=== PATIENT | male | born 1960 | race Two or more races ===

== ENCOUNTER 2020-05-25 13:00 | Inpatient (IN) | payer OTHER ==
[~2020-05-25] VITALS: Ht 170.2 cm; Wt 95.3 kg
[2020-05-25] MEDS ORDERED: methylPREDNISolone SOD SUCC 125 MG/2 ML VL IV ONE (13:45)
[2020-05-25] MEDS ORDERED: LORazepam 2MG/ML-1ML VIAL IV ONE (13:45)
[2020-05-25 13:58] LABS: Basophils # (auto) 0 10 ^3/uL (0-0.2); Basophils % (auto) 0.3 % (0.0-2.0); Eosinophils # (auto) 0 10 ^3/uL (0-0.8); Hematocrit 38.8 % (41.0-53.0); Hemoglobin 13.5 g/dL (13.5-17.5); Lymphocytes # (auto) 1.1 10 ^3/uL (0.4-5.4); Mean Corpuscular Hemoglobin 30.4 pg (28.0-32.0); Mean Corpuscular Hgb Conc. 34.8 g/dL (32.0-36.0); Mean Corpuscular Volume 87.3 fL (80.0-100.0); Monocytes # (auto) 1.3 10 ^3/uL (0-1.3); Monocytes % (auto) 8.3 % (0.0-12.0); Neutrophils # (auto) 12.7 10 ^3/uL (1.6-8.6); Neutrophils % (auto) 84.4 % (37.0-80.0); Nucleated Red Blood Cells % 0.1 %; Platelet Count (auto) 342 10^3/uL (140-450); Red Blood Cells 4.45 10^6/uL (4.5-5.90); Red Cell Distribution Width 13.2 % (11.8-14.3); White Blood Cell 15.1 10^3/uL (4.4-10.8)
[2020-05-25 14:15] LABS: INR 1.13 (0.9-1.15); Partial Thromboplastin Time 28.2 sec (23.0-31.2)
[2020-05-25 14:17] LABS: Albumin 1.9 g/dL (3.4-5.0); BUN/Creatinine Ratio 12.5; Calcium 7.2 mg/dL (8.5-10.1); Potassium 3.2 mmol/L (3.5-5.1)
[2020-05-25 14:22] LABS: Bilirubin, Total 0.4 mg/dL (0.2-1.0); Total Protein 6.1 g/dL (6.4-8.2)
[2020-05-25] MEDS ORDERED: POTASSIUM CHL 20MEQ/100ML 100 ML IV SCH (15:00)
[2020-05-25] MEDS ORDERED: diphenhdrAMINE HCL 50 MG/1 ML VL IV PRN (15:00)
[2020-05-25] MEDS ORDERED: ALBUTEROL SULF HFA 90MCG INH 200DOSE IN PRN (15:00)
[2020-05-25] MEDS ORDERED: SOD CHL 0.9%/ KCL 40MEQ 1,000 ML IV ONE (15:00)
[2020-05-25] MEDS ORDERED: REMDESIVIR PER PHARMACY 0 ML IV SCH (15:00)
[2020-05-25] MEDS ORDERED: POTASSIUM CHL 20MEQ/100ML 100 ML IV STA (15:48)
[2020-05-25] MEDS ORDERED: AZITHROMYCIN 500MG/ 250ML 250 ML IV ONE (16:00)
[2020-05-25] MEDS ORDERED: ACETAMINOPHEN 500 MG TAB PO ONE (16:00)
[2020-05-25] MEDS ORDERED: REMDESIVIR 200 MG in NS 210ml LOADING DOSE ADULT IV ONE (17:00)
[2020-05-25] MEDS ORDERED: levoFLOXacin 750MG 150 ML IV ONE (18:30)
[2020-05-25 18:35] VITALS: BP 112/88
[2020-05-25] MEDS ORDERED: LACTULOSE 20Gm/30ML SOLN PO PRN (19:00)
[2020-05-25] MEDS ORDERED: MORPHINE SULF INJ 2 MG/ML SYRINGE 1ML IV PRN ×2 (19:00→19:45)
[2020-05-25] MEDS ORDERED: FAMOTIDINE (10MG/ML) 2ML VL IV SCH (19:00)
[2020-05-25] MEDS ORDERED: PROMETHAZINE HCL 25 MG/ML 1ML IV PRN (19:00)
[2020-05-25] MEDS ORDERED: EPINEPHrine HCL 0.5 ML NEB NEB ONE (19:15)
[2020-05-25] MEDS ORDERED: NITROGLYCERIN 0.4 MG SL TAB SL PRN (19:45)
[2020-05-25] MEDS: BUDESONIDE (INHALATION) 180 MCG IH IN SCH ×2 (22:00→22:01)
[2020-05-25] MEDS: FAMOTIDINE (10MG/ML) 2ML VL IV SCH (22:00)
[2020-05-25 22:01] VITALS: BP 132/84
[2020-05-25] MEDS: ENOXAPARIN SOD 40 MG/0.4 ML SYRINGE SC SCH (22:03)
[2020-05-26 03:19] VITALS: BP 130/85
[2020-05-26 06:53] LABS: Albumin 1.9 g/dL (3.4-5.0); Anion Gap 6 (5-15); BUN/Creatinine Ratio 18.4; Blood Urea Nitrogen 16 mg/dL (7-18); Calcium 8.3 mg/dL (8.5-10.1); Carbon Dioxide 27 mmol/L (21-32); Chloride 104 mmol/L (98-107); GFR African American 116 mL/min; GFR Non-African American 95 mL/min; Glucose 141 mg/dL (74-106); Potassium 4.4 mmol/L (3.5-5.1); Sodium 137 mmol/L (136-145)
[2020-05-26 06:57] LABS: Alanine Aminotransferase 81 U/L (16-61); Alkaline Phosphatase 117 U/L (45-117); Aspartate Aminotransferase 60 U/L (15-37); Bilirubin, Total 0.3 mg/dL (0.2-1.0)
[2020-05-26 07:17] VITALS: BP 126/71
[2020-05-26] MEDS: DexAMETHasone SOD PHOS 10MG/1ML VIAL INJ IV SCH (10:13)
[2020-05-26] MEDS: FAMOTIDINE (10MG/ML) 2ML VL IV SCH ×2 (10:13→22:38)
[2020-05-26] MEDS: ASCORBIC ACID 1,000 MG TAB PO SCH (10:14)
[2020-05-26] MEDS: ENOXAPARIN SOD 40 MG/0.4 ML SYRINGE SC SCH ×2 (10:14→22:38)
[2020-05-26] MEDS: CHOLECALCIFEROL (VITD3) 2,000 UNIT CAP PO SCH (10:14)
[2020-05-26] MEDS: ZINC SULFATE 220mg CAP or TAB PO SCH (10:14)
[2020-05-26] MEDS: REMDESIVIR 100 MG in SODIUM CHL 0.9% 250 ML IV SCH (15:44)
[2020-05-26 18:15] VITALS: BP 127/66
[2020-05-26 21:40] VITALS: BP 134/77
[2020-05-26] MEDS: BUDESONIDE (INHALATION) 180 MCG IH IN SCH (22:00)
[2020-05-26] MEDS: levoFLOXacin 500MG 100 ML IV SCH (22:00)
[2020-05-27 03:05] VITALS: BP 148/80
[2020-05-27] MEDS: BUDESONIDE (INHALATION) 180 MCG IH IN SCH (06:25)
[2020-05-27 07:08] LABS: Calcium 8.5 mg/dL (8.5-10.1)
[2020-05-27 07:14] LABS: BUN/Creatinine Ratio 30.8; Bilirubin, Total 0.4 mg/dL (0.2-1.0); Total Protein 7.1 g/dL (6.4-8.2)
[2020-05-27 08:36] VITALS: BP 124/81
[2020-05-27] MEDS: ASCORBIC ACID 1,000 MG TAB PO SCH (10:00)
[2020-05-27] MEDS: CHOLECALCIFEROL (VITD3) 2,000 UNIT CAP PO SCH (10:00)
[2020-05-27] MEDS: MORPHINE SULF INJ 2 MG/ML SYRINGE 1ML IV PRN (10:22)
[2020-05-27] MEDS: FAMOTIDINE (10MG/ML) 2ML VL IV SCH ×2 (10:42→23:22)
[2020-05-27] MEDS: DexAMETHasone SOD PHOS 10MG/1ML VIAL INJ IV SCH (10:42)
[2020-05-27] MEDS: ZINC SULFATE 220mg CAP or TAB PO SCH (10:43)
[2020-05-27] MEDS: ENOXAPARIN SOD 40 MG/0.4 ML SYRINGE SC SCH ×2 (10:48→23:22)
[2020-05-27] MEDS ORDERED: FUROSEMIDE 20 MG/2 ML VIAL IV ONE (13:30)
[2020-05-27] MEDS: LORazepam 2MG/ML-1ML VIAL IV PRN ×2 (13:38→14:00)
[2020-05-27] MEDS: REMDESIVIR 100 MG in SODIUM CHL 0.9% 250 ML IV SCH (15:00)
[2020-05-27] MEDS ORDERED: HALOPERIDOL LACTATE 5 MG/ML INJ VIAL ONE (15:07)
[2020-05-27] MEDS ORDERED: diphenhdrAMINE HCL 50 MG/1 ML VL IV PRN (15:15)
[2020-05-27] MEDS ORDERED: diphenhdrAMINE HCL 50 MG/1 ML VL IM ONE (15:15)
[2020-05-27] MEDS ORDERED: HALOPERIDOL LACTATE 5 MG/ML INJ VIAL IM ONE (15:15)
[2020-05-27] MEDS ORDERED: SUCCINYLCHOLINE CHLORIDE 20 MG/ML 10ML VIAL IV ONE ×2 (15:38→15:45)
[2020-05-27] MEDS ORDERED: ETOMIDATE (2MG/ML) 20ML VIAL IV ONE ×2 (15:38→15:45)
[2020-05-27] MEDS: MIDAZOLAM DRIP 50 mg/50mL 50 ML IV SCH (15:45)
[2020-05-27] MEDS ORDERED: MIDAZOLAM DRIP 50 mg/50mL 50 ML IV ONE (15:45)
[2020-05-27] MEDS: PROPOFOL 100 ML IV SCH (15:45)
[2020-05-27] MEDS ORDERED: ALBUTEROL SULF 2.5 MG/0.5ML(0.5%) NEB SOLN NEB SCH (16:00)
[2020-05-27] MEDS ORDERED: MORPHINE SULFATE 4 MG/ML SYR/VIAL IV PRN (16:00)
[2020-05-27] MEDS ORDERED: NOREPINEPHRINE 8 MG/250ML KIT 250 ML IV ONE (17:23)
[2020-05-27] MEDS: NOREPINEPHRINE 8 MG/250ML KIT 250 ML IV SCH (17:30)
[2020-05-27] MEDS ORDERED: DOPamine 1600MCG/ML D5W 250 ML IV ONE (17:35)
[2020-05-27] MEDS ORDERED: IPRATROPIUM BROM 0.5 MG/2.5ML INH SOL NEB SCH (18:00)
[2020-05-27] MEDS: DOPamine 1600MCG/ML D5W 250 ML IV SCH (19:14)
[2020-05-27 19:30] VITALS: BP 113/65
[2020-05-27] MEDS: ALBUTEROL SULF 2.5 MG/0.5ML(0.5%) NEB SOLN NEB SCH (22:00)
[2020-05-27] MEDS: IPRATROPIUM BROM 0.5 MG/2.5ML INH SOL NEB SCH (22:00)
[2020-05-27] MEDS: levoFLOXacin 500MG 100 ML IV SCH (23:22)
[2020-05-28 00:36] VITALS: BP 99/61
[2020-05-28] MEDS: MIDAZOLAM DRIP 50 mg/50mL 50 ML IV SCH ×3 (01:58→21:50)
[2020-05-28 05:40] LABS: Basophils # (auto) 0 10 ^3/uL (0-0.2); Basophils % (auto) 0.1 % (0.0-2.0); Eosinophils # (auto) 0 10 ^3/uL (0-0.8); Eosinophils % (auto) 0.1 % (0.0-7.0); Hematocrit 40.5 % (41.0-53.0); Hemoglobin 13.3 g/dL (13.5-17.5); Lymphocytes # (auto) 1.1 10 ^3/uL (0.4-5.4); Lymphocytes % (auto) 10.8 % (10.0-50.0); Mean Corpuscular Hemoglobin 29.3 pg (28.0-32.0); Mean Corpuscular Hgb Conc. 32.9 g/dL (32.0-36.0); Mean Corpuscular Volume 89.3 fL (80.0-100.0); Monocytes # (auto) 0.8 10 ^3/uL (0-1.3); Monocytes % (auto) 7.6 % (0.0-12.0); Neutrophils # (auto) 8.3 10 ^3/uL (1.6-8.6); Neutrophils % (auto) 81.4 % (37.0-80.0); Nucleated Red Blood Cells % 0.1 %; Platelet Count (auto) 469 10^3/uL (140-450); Red Blood Cells 4.53 10^6/uL (4.5-5.90); Red Cell Distribution Width 13.8 % (11.8-14.3); White Blood Cell 10.2 10^3/uL (4.4-10.8)
[2020-05-28 05:54] LABS: Potassium 4.2 mmol/L (3.5-5.1)
[2020-05-28 06:02] LABS: Albumin 2.1 g/dL (3.4-5.0); BUN/Creatinine Ratio 31.7; Bilirubin, Total 0.6 mg/dL (0.2-1.0); Calcium 8.7 mg/dL (8.5-10.1); Total Protein 7.2 g/dL (6.4-8.2)
[2020-05-28 07:06] VITALS: BP 99/62
[2020-05-28] MEDS: ALBUTEROL SULF 2.5 MG/0.5ML(0.5%) NEB SOLN NEB SCH ×3 (07:06→22:23)
[2020-05-28] MEDS: IPRATROPIUM BROM 0.5 MG/2.5ML INH SOL NEB SCH ×3 (07:06→22:23)
[2020-05-28] MEDS ORDERED: PANTOPRAZOLE 40 MG/10 ML VIAL INJ IV SCH (10:00)
[2020-05-28] MEDS: ZINC SULFATE 220mg CAP or TAB PO SCH (10:00)
[2020-05-28] MEDS: CHOLECALCIFEROL (VITD3) 2,000 UNIT CAP PO SCH (10:00)
[2020-05-28] MEDS: ASCORBIC ACID 1,000 MG TAB PO SCH (10:00)
[2020-05-28] MEDS ORDERED: FUROSEMIDE 20 MG/2 ML VIAL IV SCH (10:00)
[2020-05-28 10:30] VITALS: BP 109/64
[2020-05-28] MEDS: DOPamine 1600MCG/ML D5W 250 ML IV SCH (11:23)
[2020-05-28] MEDS: DexAMETHasone SOD PHOS 10MG/1ML VIAL INJ IV SCH (11:32)
[2020-05-28] MEDS: FAMOTIDINE (10MG/ML) 2ML VL IV SCH ×2 (11:34→21:51)
[2020-05-28] MEDS: FUROSEMIDE 20 MG/2 ML VIAL IV SCH (11:34)
[2020-05-28] MEDS: ENOXAPARIN SOD 40 MG/0.4 ML SYRINGE SC SCH ×2 (11:35→21:51)
[2020-05-28] MEDS ORDERED: THIAMINE 100mg/ml INJ (200mg/2ml VIAL) IV ONE (13:00)
[2020-05-28] MEDS ORDERED: FOLIC ACID 1 MG in D5W 5% 50 ML INJ ONE (13:00)
[2020-05-28] MEDS ORDERED: Jevity 1.2 Cal/Fiber 1 Liter GT SCH (13:00)
[2020-05-28 13:57] VITALS: BP 109/64
[2020-05-28] MEDS: REMDESIVIR 100 MG in SODIUM CHL 0.9% 250 ML IV SCH (15:35)
[2020-05-28] MEDS: PROPOFOL 100 ML IV SCH (15:37)
[2020-05-28] MEDS: NOREPINEPHRINE 8 MG/250ML KIT 250 ML IV SCH (17:30)
[2020-05-28 19:34] VITALS: BP 115/68
[2020-05-28] MEDS: levoFLOXacin 500MG 100 ML IV SCH (21:51)
[2020-05-28 23:20] VITALS: BP 111/59
[2020-05-29] MEDS: DOPamine 1600MCG/ML D5W 250 ML IV SCH ×2 (01:12→10:04)
[2020-05-29 03:22] VITALS: BP 102/62
[2020-05-29] MEDS: LACTULOSE 20Gm/30ML SOLN GT SCH ×3 (04:35→22:00)
[2020-05-29 05:33] LABS: Eosinophils # (auto) 0 10 ^3/uL (0-0.8); Eosinophils % (auto) 0.1 % (0.0-7.0); Monocytes # (auto) 0.7 10 ^3/uL (0-1.3)
[2020-05-29 05:36] LABS: Basophils # (auto) 0 10 ^3/uL (0-0.2); Basophils % (auto) 0.2 % (0.0-2.0); Hematocrit 41.9 % (41.0-53.0); Lymphocytes % (auto) 9.8 % (10.0-50.0); Mean Corpuscular Hemoglobin 29.9 pg (28.0-32.0); Mean Corpuscular Hgb Conc. 33.3 g/dL (32.0-36.0); Mean Corpuscular Volume 89.7 fL (80.0-100.0); Monocytes % (auto) 6.1 % (0.0-12.0); Neutrophils % (auto) 83.8 % (37.0-80.0); Platelet Count (auto) 513 10^3/uL (140-450); Red Blood Cells 4.67 10^6/uL (4.5-5.90); Red Cell Distribution Width 13.9 % (11.8-14.3); White Blood Cell 10.7 10^3/uL (4.4-10.8)
[2020-05-29 05:51] LABS: Calcium 8.6 mg/dL (8.5-10.1); Potassium 4.4 mmol/L (3.5-5.1)
[2020-05-29 06:01] LABS: Albumin 2.2 g/dL (3.4-5.0); BUN/Creatinine Ratio 34.6; Bilirubin, Total 0.4 mg/dL (0.2-1.0); Total Protein 7.4 g/dL (6.4-8.2)
[2020-05-29 07:02] VITALS: BP 105/59
[2020-05-29] MEDS: ALBUTEROL SULF 2.5 MG/0.5ML(0.5%) NEB SOLN NEB SCH ×2 (07:02→20:57)
[2020-05-29] MEDS: IPRATROPIUM BROM 0.5 MG/2.5ML INH SOL NEB SCH ×2 (07:02→20:57)
[2020-05-29] MEDS: FOLIC ACID 1 MG in D5W 5% 50 ML INJ SCH (09:14)
[2020-05-29] MEDS: DexAMETHasone SOD PHOS 10MG/1ML VIAL INJ IV SCH (09:15)
[2020-05-29] MEDS: THIAMINE 100mg/ml INJ (200mg/2ml VIAL) IV SCH (09:15)
[2020-05-29] MEDS: FUROSEMIDE 20 MG/2 ML VIAL IV SCH (09:15)
[2020-05-29] MEDS: ZINC SULFATE 220mg CAP or TAB PO SCH (09:16)
[2020-05-29] MEDS: ASCORBIC ACID 1,000 MG TAB PO SCH (09:16)
[2020-05-29] MEDS: FAMOTIDINE (10MG/ML) 2ML VL IV SCH ×2 (09:16→21:38)
[2020-05-29] MEDS: ENOXAPARIN SOD 40 MG/0.4 ML SYRINGE SC SCH ×2 (09:16→21:38)
[2020-05-29] MEDS: CHOLECALCIFEROL (VITD3) 2,000 UNIT CAP PO SCH (09:16)
[2020-05-29] MEDS: MIDAZOLAM DRIP 50 mg/50mL 50 ML IV SCH ×3 (10:03→18:30)
[2020-05-29] MEDS: PROPOFOL 100 ML IV SCH (10:04)
[2020-05-29 10:25] VITALS: BP 110/68
[2020-05-29] MEDS: fentaNYL Drip 2500mCg/250mlNS 250 ML IV SCH (12:13)
[2020-05-29] MEDS: REMDESIVIR 100 MG in SODIUM CHL 0.9% 250 ML IV SCH (15:45)
[2020-05-29] MEDS: Ensure Enlive Chocolate 8oz Bottle GT SCH ×2 (18:00→22:00)
[2020-05-29 18:11] VITALS: BP 122/64
[2020-05-29] MEDS: levoFLOXacin 500MG 100 ML IV SCH (21:38)
[2020-05-29 23:50] VITALS: BP 113/71
[2020-05-30 05:14] LABS: Basophils # (auto) 0.1 10 ^3/uL (0-0.2); Basophils % (auto) 0.4 % (0.0-2.0); Eosinophils # (auto) 0 10 ^3/uL (0-0.8); Hemoglobin 14.1 g/dL (13.5-17.5); Lymphocytes # (auto) 1.2 10 ^3/uL (0.4-5.4); Mean Corpuscular Hemoglobin 30.8 pg (28.0-32.0); Mean Corpuscular Hgb Conc. 34.4 g/dL (32.0-36.0); Mean Corpuscular Volume 89.5 fL (80.0-100.0); Monocytes % (auto) 6.7 % (0.0-12.0); Neutrophils % (auto) 84.9 % (37.0-80.0); Platelet Count (auto) 565 10^3/uL (140-450); Red Blood Cells 4.59 10^6/uL (4.5-5.90); Red Cell Distribution Width 13.5 % (11.8-14.3); White Blood Cell 15.3 10^3/uL (4.4-10.8)
[2020-05-30 05:43] LABS: Potassium 4.8 mmol/L (3.5-5.1)
[2020-05-30 05:53] LABS: Albumin 2.3 g/dL (3.4-5.0); BUN/Creatinine Ratio 40.2; Bilirubin, Total 0.4 mg/dL (0.2-1.0); Calcium 8.7 mg/dL (8.5-10.1); Total Protein 7.6 g/dL (6.4-8.2)
[2020-05-30] MEDS: IPRATROPIUM BROM 0.5 MG/2.5ML INH SOL NEB SCH ×3 (06:00→19:51)
[2020-05-30] MEDS: ALBUTEROL SULF 2.5 MG/0.5ML(0.5%) NEB SOLN NEB SCH ×3 (06:00→19:51)
[2020-05-30 06:11] VITALS: BP 121/64
[2020-05-30] MEDS: Ensure Enlive Chocolate 8oz Bottle GT SCH ×4 (07:09→22:00)
[2020-05-30] MEDS: DOPamine 1600MCG/ML D5W 250 ML IV SCH ×2 (07:16→22:38)
[2020-05-30 09:46] VITALS: BP 121/66
[2020-05-30] MEDS: LACTULOSE 20Gm/30ML SOLN GT SCH ×2 (10:00→22:00)
[2020-05-30] MEDS: THIAMINE 100mg/ml INJ (200mg/2ml VIAL) IV SCH (11:38)
[2020-05-30] MEDS: ASCORBIC ACID 1,000 MG TAB PO SCH (11:39)
[2020-05-30] MEDS: CHOLECALCIFEROL (VITD3) 2,000 UNIT CAP PO SCH (11:39)
[2020-05-30] MEDS: FAMOTIDINE (10MG/ML) 2ML VL IV SCH ×2 (11:39→23:26)
[2020-05-30] MEDS: ZINC SULFATE 220mg CAP or TAB PO SCH (11:39)
[2020-05-30] MEDS: ENOXAPARIN SOD 40 MG/0.4 ML SYRINGE SC SCH ×2 (11:39→23:26)
[2020-05-30] MEDS: DexAMETHasone SOD PHOS 10MG/1ML VIAL INJ IV SCH (11:39)
[2020-05-30] MEDS: FOLIC ACID 1 MG in D5W 5% 50 ML INJ SCH (11:56)
[2020-05-30] MEDS: FUROSEMIDE 20 MG/2 ML VIAL IV SCH (11:56)
[2020-05-30] MEDS: levoFLOXacin 750MG 150 ML IV SCH (11:56)
[2020-05-30] MEDS: MIDAZOLAM DRIP 50 mg/50mL 50 ML IV SCH ×2 (13:59→14:38)
[2020-05-30 14:00] VITALS: BP 116/67
[2020-05-30] MEDS ORDERED: PROPOFOL 100 ML IV ONE (14:26)
[2020-05-30] MEDS: PROPOFOL 100 ML IV SCH (14:30)
[2020-05-30 18:10] VITALS: BP 122/62
[2020-05-30] MEDS: fentaNYL Drip 2500mCg/250mlNS 250 ML IV SCH ×2 (19:35→22:20)
[2020-05-30 22:10] VITALS: BP 121/62
[2020-05-31 02:20] VITALS: BP 132/66
[2020-05-31] MEDS: Ensure Enlive Chocolate 8oz Bottle GT SCH (06:00)
[2020-05-31 06:15] VITALS: BP 116/65
[2020-05-31 06:19] LABS: Basophils # (auto) 0 10 ^3/uL (0-0.2); Basophils % (auto) 0.1 % (0.0-2.0); Eosinophils # (auto) 0 10 ^3/uL (0-0.8); Eosinophils % (auto) 0.2 % (0.0-7.0); Hemoglobin 14.2 g/dL (13.5-17.5); Red Cell Distribution Width 13.5 % (11.8-14.3)
[2020-05-31] MEDS: ALBUTEROL SULF 2.5 MG/0.5ML(0.5%) NEB SOLN NEB SCH ×3 (06:20→19:17)
[2020-05-31] MEDS: IPRATROPIUM BROM 0.5 MG/2.5ML INH SOL NEB SCH ×3 (06:20→19:16)
[2020-05-31 06:28] LABS: Hematocrit 40.9 % (41.0-53.0); Lymphocytes # (auto) 2.1 10 ^3/uL (0.4-5.4); Lymphocytes % (auto) 14.4 % (10.0-50.0); Mean Corpuscular Hemoglobin 30.6 pg (28.0-32.0); Mean Corpuscular Hgb Conc. 34.7 g/dL (32.0-36.0); Mean Corpuscular Volume 88.3 fL (80.0-100.0); Monocytes # (auto) 1.2 10 ^3/uL (0-1.3); Monocytes % (auto) 8.4 % (0.0-12.0); Neutrophils # (auto) 11.3 10 ^3/uL (1.6-8.6); Neutrophils % (auto) 76.9 % (37.0-80.0); Nucleated Red Blood Cells % 0.2 %; Platelet Count (auto) 597 10^3/uL (140-450); Red Blood Cells 4.64 10^6/uL (4.5-5.90); White Blood Cell 14.7 10^3/uL (4.4-10.8)
[2020-05-31 06:35] LABS: Potassium 3.9 mmol/L (3.5-5.1)
[2020-05-31 06:47] LABS: Albumin 2.3 g/dL (3.4-5.0); BUN/Creatinine Ratio 34.3; Bilirubin, Total 0.8 mg/dL (0.2-1.0); Total Protein 7.2 g/dL (6.4-8.2)
[2020-05-31] MEDS: MIDAZOLAM DRIP 50 mg/50mL 50 ML IV SCH (09:58)
[2020-05-31] MEDS: LACTULOSE 20Gm/30ML SOLN GT SCH ×2 (10:20→22:05)
[2020-05-31] MEDS: THIAMINE 100mg/ml INJ (200mg/2ml VIAL) IV SCH (10:21)
[2020-05-31] MEDS: ENOXAPARIN SOD 40 MG/0.4 ML SYRINGE SC SCH ×2 (10:27→22:05)
[2020-05-31] MEDS: DexAMETHasone SOD PHOS 10MG/1ML VIAL INJ IV SCH (10:32)
[2020-05-31] MEDS: FAMOTIDINE (10MG/ML) 2ML VL IV SCH ×2 (10:48→22:05)
[2020-05-31] MEDS: levoFLOXacin 750MG 150 ML IV SCH (10:48)
[2020-05-31] MEDS: CHOLECALCIFEROL (VITD3) 2,000 UNIT CAP PO SCH (10:48)
[2020-05-31] MEDS: ASCORBIC ACID 1,000 MG TAB PO SCH (10:48)
[2020-05-31] MEDS: ZINC SULFATE 220mg CAP or TAB PO SCH (10:48)
[2020-05-31] MEDS: FUROSEMIDE 20 MG/2 ML VIAL IV SCH (10:48)
[2020-05-31] MEDS: FOLIC ACID 1 MG in D5W 5% 50 ML INJ SCH (10:49)
[2020-05-31 10:52] VITALS: BP 121/68
[2020-05-31] MEDS: DOPamine 1600MCG/ML D5W 250 ML IV SCH (13:37)
[2020-05-31 13:45] VITALS: BP 113/65
[2020-05-31] MEDS: PROPOFOL 100 ML IV SCH (15:04)
[2020-05-31 18:45] VITALS: BP 130/67
[2020-05-31 22:40] VITALS: BP 129/63
[2020-06-01] VITALS (95 sets, daily range): BP systolic 94–177; BP diastolic 55–83
[2020-06-01] MEDS: MIDAZOLAM DRIP 50 mg/50mL 50 ML IV SCH ×3 (03:45→12:44)
[2020-06-01] MEDS: DOPamine 1600MCG/ML D5W 250 ML IV SCH ×2 (04:35→19:40)
[2020-06-01] MEDS: IPRATROPIUM BROM 0.5 MG/2.5ML INH SOL NEB SCH ×3 (06:50→18:40)
[2020-06-01] MEDS: ALBUTEROL SULF 2.5 MG/0.5ML(0.5%) NEB SOLN NEB SCH ×3 (06:50→18:40)
[2020-06-01 07:03] LABS: Hematocrit 41.4 % (41.0-53.0); Hemoglobin 14.1 g/dL (13.5-17.5); Mean Corpuscular Hemoglobin 30.4 pg (28.0-32.0); Mean Corpuscular Hgb Conc. 34.1 g/dL (32.0-36.0)
[2020-06-01 07:07] LABS: Mean Corpuscular Volume 89.1 fL (80.0-100.0); Platelet Count (auto) 496 10^3/uL (140-450); Red Blood Cells 4.65 10^6/uL (4.5-5.90); Red Cell Distribution Width 13.6 % (11.8-14.3)
[2020-06-01 07:11] LABS: Band Neutrophils % (manual) 0; Basophils % (manual) 0 (0.0-2.0); Blast Cells 0; Eosinophils % (manual) 0 (0-7); Metamyelocytes % 0; Promyelocytes % 0; Reactive Lymphocytes 0
[2020-06-01 07:42] LABS: Lymphocytes % (manual) 13 (10.0-50.0); Monocytes % (manual) 7 (0-12); Myelocytes % 3
[2020-06-01 07:49] LABS: Potassium 4.4 mmol/L (3.5-5.1)
[2020-06-01 07:53] LABS: Albumin 2.4 g/dL (3.4-5.0); BUN/Creatinine Ratio 43.2; Calcium 8.3 mg/dL (8.5-10.1)
[2020-06-01 07:55] LABS: Bilirubin, Total 0.8 mg/dL (0.2-1.0); Total Protein 7.3 g/dL (6.4-8.2)
[2020-06-01] MEDS: fentaNYL Drip 2500mCg/250mlNS 250 ML IV SCH ×2 (09:39→23:30)
[2020-06-01] MEDS: CHOLECALCIFEROL (VITD3) 2,000 UNIT CAP PO SCH (10:00)
[2020-06-01] MEDS: ASCORBIC ACID 1,000 MG TAB PO SCH (10:00)
[2020-06-01] MEDS: ENOXAPARIN SOD 40 MG/0.4 ML SYRINGE SC SCH ×2 (10:00→21:54)
[2020-06-01] MEDS: DexAMETHasone SOD PHOS 10MG/1ML VIAL INJ IV SCH (10:00)
[2020-06-01] MEDS: FAMOTIDINE (10MG/ML) 2ML VL IV SCH ×2 (10:00→21:47)
[2020-06-01] MEDS: FUROSEMIDE 20 MG/2 ML VIAL IV SCH (10:00)
[2020-06-01] MEDS: LACTULOSE 20Gm/30ML SOLN GT SCH ×2 (10:00→21:47)
[2020-06-01] MEDS: THIAMINE 100mg/ml INJ (200mg/2ml VIAL) IV SCH (10:00)
[2020-06-01] MEDS: ZINC SULFATE 220mg CAP or TAB PO SCH (10:00)
[2020-06-01] MEDS: levoFLOXacin 750MG 150 ML IV SCH (10:30)
[2020-06-01] MEDS: FOLIC ACID 1 MG in D5W 5% 50 ML INJ SCH (12:42)
[2020-06-01] MEDS: PROPOFOL 100 ML IV SCH (14:45)
[2020-06-02] VITALS (91 sets, daily range): BP systolic 107–209; BP diastolic 56–98
[2020-06-02] MEDS: MIDAZOLAM DRIP 50 mg/50mL 50 ML IV SCH ×3 (02:56→19:50)
[2020-06-02 05:55] LABS: Basophils # (auto) 0 10 ^3/uL (0-0.2); Basophils % (auto) 0.2 % (0.0-2.0); Eosinophils # (auto) 0 10 ^3/uL (0-0.8); Eosinophils % (auto) 0.1 % (0.0-7.0); Hemoglobin 13.8 g/dL (13.5-17.5); Lymphocytes # (auto) 1.6 10 ^3/uL (0.4-5.4); Neutrophils % (auto) 83.1 % (37.0-80.0)
[2020-06-02 05:56] LABS: Hematocrit 41.6 % (41.0-53.0); Mean Corpuscular Hgb Conc. 33.2 g/dL (32.0-36.0); Mean Corpuscular Volume 90.4 fL (80.0-100.0); Monocytes % (auto) 6.6 % (0.0-12.0); Nucleated Red Blood Cells % 0.1 %; Platelet Count (auto) 498 10^3/uL (140-450); Red Blood Cells 4.59 10^6/uL (4.5-5.90); Red Cell Distribution Width 13.8 % (11.8-14.3); White Blood Cell 15.7 10^3/uL (4.4-10.8)
[2020-06-02 06:11] LABS: Potassium 4.8 mmol/L (3.5-5.1)
[2020-06-02 06:19] LABS: Albumin 2.2 g/dL (3.4-5.0); BUN/Creatinine Ratio 56.5; Calcium 8.8 mg/dL (8.5-10.1); Total Protein 7.4 g/dL (6.4-8.2)
[2020-06-02] MEDS: IPRATROPIUM BROM 0.5 MG/2.5ML INH SOL NEB SCH ×3 (07:34→18:10)
[2020-06-02] MEDS: ALBUTEROL SULF 2.5 MG/0.5ML(0.5%) NEB SOLN NEB SCH ×3 (07:34→18:10)
[2020-06-02] MEDS: LACTULOSE 20Gm/30ML SOLN GT SCH ×2 (08:50→22:00)
[2020-06-02] MEDS: FUROSEMIDE 20 MG/2 ML VIAL IV SCH (08:51)
[2020-06-02] MEDS: ZINC SULFATE 220mg CAP or TAB PO SCH (08:51)
[2020-06-02] MEDS: FAMOTIDINE (10MG/ML) 2ML VL IV SCH ×2 (08:51→23:16)
[2020-06-02] MEDS: levoFLOXacin 750MG 150 ML IV SCH (08:51)
[2020-06-02] MEDS: THIAMINE 100mg/ml INJ (200mg/2ml VIAL) IV SCH (08:51)
[2020-06-02] MEDS: DexAMETHasone SOD PHOS 10MG/1ML VIAL INJ IV SCH (08:51)
[2020-06-02] MEDS: ASCORBIC ACID 1,000 MG TAB PO SCH (08:52)
[2020-06-02] MEDS: ENOXAPARIN SOD 40 MG/0.4 ML SYRINGE SC SCH ×2 (08:52→23:16)
[2020-06-02] MEDS: DOPamine 1600MCG/ML D5W 250 ML IV SCH (08:52)
[2020-06-02] MEDS: CHOLECALCIFEROL (VITD3) 2,000 UNIT CAP PO SCH (08:52)
[2020-06-02] MEDS: PROPOFOL 100 ML IV SCH (09:10)
[2020-06-02] MEDS: FOLIC ACID 1 MG in D5W 5% 50 ML INJ SCH (10:54)
[2020-06-02] MEDS: fentaNYL Drip 2500mCg/250mlNS 250 ML IV SCH (13:30)
[2020-06-03] VITALS (70 sets, daily range): BP systolic 105–219; BP diastolic 49–109
[2020-06-03] MEDS: MIDAZOLAM DRIP 50 mg/50mL 50 ML IV SCH ×3 (00:09→19:33)
[2020-06-03] MEDS: DOPamine 1600MCG/ML D5W 250 ML IV SCH ×2 (01:50→19:34)
[2020-06-03] MEDS: fentaNYL Drip 2500mCg/250mlNS 250 ML IV SCH (02:19)
[2020-06-03 03:14] LABS: Basophils # (auto) 0.2 10 ^3/uL (0-0.2); Eosinophils # (auto) 0 10 ^3/uL (0-0.8); Monocytes # (auto) 1.1 10 ^3/uL (0-1.3)
[2020-06-03 03:15] LABS: Hematocrit 41.3 % (41.0-53.0); Hemoglobin 13.9 g/dL (13.5-17.5); Lymphocytes # (auto) 2.6 10 ^3/uL (0.4-5.4); Mean Corpuscular Hemoglobin 29.9 pg (28.0-32.0); Mean Corpuscular Hgb Conc. 33.6 g/dL (32.0-36.0); Monocytes % (auto) 6.4 % (0.0-12.0); Neutrophils # (auto) 13.4 10 ^3/uL (1.6-8.6); Neutrophils % (auto) 77.6 % (37.0-80.0); Platelet Count (auto) 479 10^3/uL (140-450); Red Blood Cells 4.64 10^6/uL (4.5-5.90); Red Cell Distribution Width 13.3 % (11.8-14.3); White Blood Cell 17.3 10^3/uL (4.4-10.8)
[2020-06-03 03:33] LABS: Albumin 2.5 g/dL (3.4-5.0); BUN/Creatinine Ratio 58.2; Calcium 8.5 mg/dL (8.5-10.1); Potassium 3.8 mmol/L (3.5-5.1)
[2020-06-03 03:36] LABS: Bilirubin, Total 0.9 mg/dL (0.2-1.0); Total Protein 7.3 g/dL (6.4-8.2)
[2020-06-03] MEDS: IPRATROPIUM BROM 0.5 MG/2.5ML INH SOL NEB SCH ×2 (06:00→18:45)
[2020-06-03] MEDS: ALBUTEROL SULF 2.5 MG/0.5ML(0.5%) NEB SOLN NEB SCH ×2 (06:00→18:45)
[2020-06-03] MEDS: LACTULOSE 20Gm/30ML SOLN GT SCH ×2 (09:52→21:47)
[2020-06-03] MEDS: levoFLOXacin 750MG 150 ML IV SCH (09:53)
[2020-06-03] MEDS: FOLIC ACID 1 MG in D5W 5% 50 ML INJ SCH (09:53)
[2020-06-03] MEDS: THIAMINE 100mg/ml INJ (200mg/2ml VIAL) IV SCH (09:53)
[2020-06-03] MEDS: DexAMETHasone SOD PHOS 10MG/1ML VIAL INJ IV SCH (09:53)
[2020-06-03] MEDS: FAMOTIDINE (10MG/ML) 2ML VL IV SCH ×2 (09:54→21:47)
[2020-06-03] MEDS: ZINC SULFATE 220mg CAP or TAB PO SCH (09:54)
[2020-06-03] MEDS: CHOLECALCIFEROL (VITD3) 2,000 UNIT CAP PO SCH (09:55)
[2020-06-03] MEDS: ASCORBIC ACID 1,000 MG TAB PO SCH (09:55)
[2020-06-03] MEDS: ENOXAPARIN SOD 40 MG/0.4 ML SYRINGE SC SCH ×2 (09:56→21:48)
[2020-06-03] MEDS ORDERED: ERTAPENEM SOD INJ 1 GM in SODIUM CHL 0.9% 50 ML IV SCH (14:00)
[2020-06-03] MEDS: FLUCONAZOLE 200MG/100ML 100 ML IV SCH ×2 (15:16→16:10)
[2020-06-03] MEDS ORDERED: hydrALAZINE HCL 20 MG/ML VL IV ONE (16:45)
[2020-06-03] MEDS: HALOPERIDOL LACTATE 5 MG/ML INJ VIAL IM PRN (17:25)
[2020-06-03] MEDS: hydrALAZINE HCL 20 MG/ML VL IV PRN ×2 (18:17→20:45)
[2020-06-03] MEDS: PROPOFOL 100 ML IV SCH (19:34)
[2020-06-03] MEDS: MORPHINE SULF INJ 2 MG/ML SYRINGE 1ML IV PRN (21:00)
[2020-06-04] VITALS (58 sets, daily range): BP systolic 130–179; BP diastolic 53–96
[2020-06-04] MEDS: hydrALAZINE HCL 20 MG/ML VL IV PRN ×2 (00:35→06:30)
[2020-06-04] MEDS: LORazepam 2MG/ML-1ML VIAL IV PRN ×2 (00:35→22:56)
[2020-06-04] MEDS: MORPHINE SULF INJ 2 MG/ML SYRINGE 1ML IV PRN ×2 (04:30→20:15)
[2020-06-04 05:35] LABS: Basophils # (auto) 0.1 10 ^3/uL (0-0.2); Basophils % (auto) 0.3 % (0.0-2.0); Eosinophils # (auto) 0 10 ^3/uL (0-0.8); Red Blood Cells 4.69 10^6/uL (4.5-5.90)
[2020-06-04 05:40] LABS: Hematocrit 41.8 % (41.0-53.0); Lymphocytes # (auto) 1.4 10 ^3/uL (0.4-5.4); Lymphocytes % (auto) 6.8 % (10.0-50.0); Mean Corpuscular Hemoglobin 29.9 pg (28.0-32.0); Mean Corpuscular Hgb Conc. 33.6 g/dL (32.0-36.0); Monocytes # (auto) 1.4 10 ^3/uL (0-1.3); Monocytes % (auto) 6.7 % (0.0-12.0); Neutrophils # (auto) 17.5 10 ^3/uL (1.6-8.6); Neutrophils % (auto) 86.2 % (37.0-80.0); Platelet Count (auto) 497 10^3/uL (140-450); Red Cell Distribution Width 13.3 % (11.8-14.3); White Blood Cell 20.3 10^3/uL (4.4-10.8)
[2020-06-04 05:50] LABS: Albumin 2.5 g/dL (3.4-5.0); Calcium 8.8 mg/dL (8.5-10.1); Potassium 3.7 mmol/L (3.5-5.1)
[2020-06-04 05:55] LABS: Bilirubin, Total 1.1 mg/dL (0.2-1.0); Total Protein 7.4 g/dL (6.4-8.2)
[2020-06-04] MEDS ORDERED: VANCOMYCIN PER PHARMACY 0 MG IV SCH (09:45)
[2020-06-04] MEDS ORDERED: chlordiazePOXIDE HCL 25 MG CAP GT ONE (09:45)
[2020-06-04] MEDS ORDERED: FLUCONAZOLE 200MG/100ML 100 ML IV SCH (10:00)
[2020-06-04] MEDS: LACTULOSE 20Gm/30ML SOLN GT SCH ×2 (10:00→22:08)
[2020-06-04] MEDS: FOLIC ACID 1 MG in D5W 5% 50 ML INJ SCH (10:10)
[2020-06-04] MEDS: THIAMINE 100mg/ml INJ (200mg/2ml VIAL) IV SCH (10:10)
[2020-06-04] MEDS: ZINC SULFATE 220mg CAP or TAB PO SCH (10:11)
[2020-06-04] MEDS: ASCORBIC ACID 1,000 MG TAB PO SCH (10:11)
[2020-06-04] MEDS: CHOLECALCIFEROL (VITD3) 2,000 UNIT CAP PO SCH (10:11)
[2020-06-04] MEDS: DexAMETHasone SOD PHOS 10MG/1ML VIAL INJ IV SCH (10:11)
[2020-06-04] MEDS: FAMOTIDINE (10MG/ML) 2ML VL IV SCH ×2 (10:11→22:08)
[2020-06-04] MEDS: ENOXAPARIN SOD 40 MG/0.4 ML SYRINGE SC SCH ×2 (10:12→22:09)
[2020-06-04] MEDS: VANCOMYCIN 1GM/250ML 250 ML IV SCH ×2 (10:56→18:14)
[2020-06-04] MEDS: chlordiazePOXIDE HCL 25 MG CAP PO SCH ×3 (11:52→23:58)
[2020-06-04] MEDS: CEFEPIME 1 GM in SODIUM CHL 0.9% 50 ML IV SCH ×2 (13:05→22:07)
[2020-06-04] MEDS: HALOPERIDOL LACTATE 5 MG/ML INJ VIAL IM PRN (17:15)
[2020-06-04] MEDS: Jevity 1.2 Cal/Fiber 1 Liter GT SCH (17:34)
[2020-06-05] VITALS (24 sets, daily range): BP systolic 123–153; BP diastolic 69–87
[2020-06-05] MEDS ORDERED: HALOPERIDOL LACTATE 5 MG/ML INJ VIAL IM PRN
[2020-06-05] MEDS: VANCOMYCIN 1GM/250ML 250 ML IV SCH ×3 (02:04→19:25)
[2020-06-05] MEDS: MORPHINE SULF INJ 2 MG/ML SYRINGE 1ML IV PRN (02:37)
[2020-06-05 05:26] LABS: Basophils # (auto) 0 10 ^3/uL (0-0.2); Eosinophils # (auto) 0 10 ^3/uL (0-0.8); Eosinophils % (auto) 0.1 % (0.0-7.0); Red Cell Distribution Width 13.5 % (11.8-14.3)
[2020-06-05 05:28] LABS: Basophils % (auto) 0.3 % (0.0-2.0); Hematocrit 40.9 % (41.0-53.0); Hemoglobin 14.3 g/dL (13.5-17.5); Lymphocytes # (auto) 2.2 10 ^3/uL (0.4-5.4); Lymphocytes % (auto) 12.8 % (10.0-50.0); Mean Corpuscular Hemoglobin 30.8 pg (28.0-32.0); Mean Corpuscular Hgb Conc. 34.8 g/dL (32.0-36.0); Mean Corpuscular Volume 88.5 fL (80.0-100.0); Monocytes # (auto) 1.4 10 ^3/uL (0-1.3); Monocytes % (auto) 8.4 % (0.0-12.0); Neutrophils # (auto) 13.3 10 ^3/uL (1.6-8.6); Neutrophils % (auto) 78.4 % (37.0-80.0); Platelet Count (auto) 513 10^3/uL (140-450); Red Blood Cells 4.62 10^6/uL (4.5-5.90); White Blood Cell 16.9 10^3/uL (4.4-10.8)
[2020-06-05 05:43] LABS: Albumin 2.5 g/dL (3.4-5.0); Calcium 8.5 mg/dL (8.5-10.1); Potassium 3.8 mmol/L (3.5-5.1)
[2020-06-05 05:47] LABS: Bilirubin, Total 0.9 mg/dL (0.2-1.0); Total Protein 7.3 g/dL (6.4-8.2)
[2020-06-05] MEDS: chlordiazePOXIDE HCL 25 MG CAP PO SCH (06:40)
[2020-06-05] MEDS: CEFEPIME 1 GM in SODIUM CHL 0.9% 50 ML IV SCH ×3 (06:40→21:44)
[2020-06-05] MEDS ORDERED: chlordiazePOXIDE HCL 25 MG CAP PO PRN (09:30)
[2020-06-05] MEDS: LACTULOSE 20Gm/30ML SOLN GT SCH ×2 (10:00→21:44)
[2020-06-05] MEDS: FOLIC ACID 1 MG in D5W 5% 50 ML INJ SCH (10:06)
[2020-06-05] MEDS: FAMOTIDINE (10MG/ML) 2ML VL IV SCH ×2 (10:06→21:45)
[2020-06-05] MEDS: THIAMINE 100mg/ml INJ (200mg/2ml VIAL) IV SCH (10:06)
[2020-06-05] MEDS: ZINC SULFATE 220mg CAP or TAB PO SCH (10:07)
[2020-06-05] MEDS: CHOLECALCIFEROL (VITD3) 2,000 UNIT CAP PO SCH (10:07)
[2020-06-05] MEDS: ASCORBIC ACID 1,000 MG TAB PO SCH (10:07)
[2020-06-05] MEDS: ENOXAPARIN SOD 40 MG/0.4 ML SYRINGE SC SCH (10:09)
[2020-06-05] MEDS: ALBUTEROL SULF 2.5 MG/0.5ML(0.5%) NEB SOLN NEB SCH (22:00)
[2020-06-05] MEDS: IPRATROPIUM BROM 0.5 MG/2.5ML INH SOL NEB SCH (22:00)
[2020-06-06] VITALS (13 sets, daily range): BP systolic 111–136; BP diastolic 72–83
[2020-06-06] MEDS: VANCOMYCIN 1GM/250ML 250 ML IV SCH ×3 (03:27→23:16)
[2020-06-06 05:54] LABS: Hematocrit 42.2 % (41.0-53.0); Hemoglobin 14.7 g/dL (13.5-17.5); Red Cell Distribution Width 13.5 % (11.8-14.3)
[2020-06-06 05:56] LABS: Basophils # (auto) 0.1 10 ^3/uL (0-0.2); Eosinophils # (auto) 0.1 10 ^3/uL (0-0.8); Eosinophils % (auto) 0.4 % (0.0-7.0); Lymphocytes # (auto) 2.8 10 ^3/uL (0.4-5.4); Lymphocytes % (auto) 18.6 % (10.0-50.0); Mean Corpuscular Hemoglobin 30.6 pg (28.0-32.0); Mean Corpuscular Hgb Conc. 34.7 g/dL (32.0-36.0); Mean Corpuscular Volume 88.1 fL (80.0-100.0); Monocytes # (auto) 1.4 10 ^3/uL (0-1.3); Monocytes % (auto) 9.3 % (0.0-12.0); Neutrophils # (auto) 10.6 10 ^3/uL (1.6-8.6); Neutrophils % (auto) 70.7 % (37.0-80.0); Platelet Count (auto) 473 10^3/uL (140-450); Red Blood Cells 4.79 10^6/uL (4.5-5.90)
[2020-06-06 06:07] LABS: Albumin 2.5 g/dL (3.4-5.0); Calcium 8.8 mg/dL (8.5-10.1); Potassium 3.9 mmol/L (3.5-5.1)
[2020-06-06 06:12] LABS: BUN/Creatinine Ratio 38.6; Bilirubin, Total 0.8 mg/dL (0.2-1.0); Total Protein 7.4 g/dL (6.4-8.2)
[2020-06-06] MEDS: CEFEPIME 1 GM in SODIUM CHL 0.9% 50 ML IV SCH ×3 (06:31→21:16)
[2020-06-06] MEDS: IPRATROPIUM BROM 0.5 MG/2.5ML INH SOL NEB SCH ×3 (08:10→19:00)
[2020-06-06] MEDS: ALBUTEROL SULF 2.5 MG/0.5ML(0.5%) NEB SOLN NEB SCH ×3 (08:10→19:00)
[2020-06-06] MEDS: CHOLECALCIFEROL (VITD3) 2,000 UNIT CAP PO SCH (10:00)
[2020-06-06] MEDS: FOLIC ACID 1 MG in D5W 5% 50 ML INJ SCH (10:00)
[2020-06-06] MEDS: LACTULOSE 20Gm/30ML SOLN GT SCH ×2 (10:00→21:16)
[2020-06-06] MEDS: FAMOTIDINE (10MG/ML) 2ML VL IV SCH ×2 (10:00→21:16)
[2020-06-06] MEDS: THIAMINE 100mg/ml INJ (200mg/2ml VIAL) IV SCH (10:00)
[2020-06-06] MEDS: ZINC SULFATE 220mg CAP or TAB PO SCH (10:00)
[2020-06-06] MEDS: ENOXAPARIN SOD 40 MG/0.4 ML SYRINGE SC SCH (10:00)
[2020-06-06] MEDS: ASCORBIC ACID 1,000 MG TAB PO SCH (10:00)
[2020-06-06] MEDS ORDERED: VANCOMYCIN 1GM/250ML 250 ML IV SCH (11:00)
[2020-06-07] VITALS: BP 135/80
[2020-06-07] MEDS: VANCOMYCIN 1GM/250ML 250 ML IV SCH ×4 (05:00→21:37)
[2020-06-07] MEDS: CEFEPIME 1 GM in SODIUM CHL 0.9% 50 ML IV SCH ×2 (06:20→14:01)
[2020-06-07 07:00] LABS: Basophils # (auto) 0 10 ^3/uL (0-0.2); Eosinophils # (auto) 0.1 10 ^3/uL (0-0.8); Hemoglobin 15.7 g/dL (13.5-17.5); Monocytes # (auto) 1.8 10 ^3/uL (0-1.3); Red Blood Cells 5.28 10^6/uL (4.5-5.90)
[2020-06-07 07:04] LABS: Basophils % (auto) 0.2 % (0.0-2.0); Eosinophils % (auto) 0.6 % (0.0-7.0); Hematocrit 46.9 % (41.0-53.0); Lymphocytes # (auto) 1.7 10 ^3/uL (0.4-5.4); Lymphocytes % (auto) 10.5 % (10.0-50.0); Mean Corpuscular Hemoglobin 29.7 pg (28.0-32.0); Mean Corpuscular Hgb Conc. 33.5 g/dL (32.0-36.0); Mean Corpuscular Volume 88.8 fL (80.0-100.0); Neutrophils # (auto) 12.8 10 ^3/uL (1.6-8.6); Neutrophils % (auto) 77.7 % (37.0-80.0); Platelet Count (auto) 530 10^3/uL (140-450); Red Cell Distribution Width 13.6 % (11.8-14.3); White Blood Cell 16.4 10^3/uL (4.4-10.8)
[2020-06-07 07:17] LABS: BUN/Creatinine Ratio 33.3; Calcium 8.6 mg/dL (8.5-10.1)
[2020-06-07 08:00] VITALS: BP 132/76
[2020-06-07] MEDS: IPRATROPIUM BROM 0.5 MG/2.5ML INH SOL NEB SCH ×2 (08:00→18:59)
[2020-06-07] MEDS: ALBUTEROL SULF 2.5 MG/0.5ML(0.5%) NEB SOLN NEB SCH ×2 (08:00→18:59)
[2020-06-07] MEDS: FOLIC ACID 1 MG in D5W 5% 50 ML INJ SCH (10:00)
[2020-06-07] MEDS: FAMOTIDINE (10MG/ML) 2ML VL IV SCH ×2 (11:16→21:36)
[2020-06-07] MEDS: THIAMINE 100mg/ml INJ (200mg/2ml VIAL) IV SCH (11:16)
[2020-06-07] MEDS: LACTULOSE 20Gm/30ML SOLN GT SCH ×2 (11:16→21:26)
[2020-06-07] MEDS: CHOLECALCIFEROL (VITD3) 2,000 UNIT CAP PO SCH (11:17)
[2020-06-07] MEDS: ASCORBIC ACID 1,000 MG TAB PO SCH (11:17)
[2020-06-07] MEDS: ZINC SULFATE 220mg CAP or TAB PO SCH (11:17)
[2020-06-07] MEDS: ENOXAPARIN SOD 40 MG/0.4 ML SYRINGE SC SCH (11:17)
[2020-06-07 16:00] VITALS: BP 133/75
[2020-06-08] VITALS: BP 132/87
[2020-06-08] MEDS: CEFEPIME 1 GM in SODIUM CHL 0.9% 50 ML IV SCH ×4 (00:33→22:44)
[2020-06-08 05:50] LABS: Basophils # (auto) 0 10 ^3/uL (0-0.2); Eosinophils # (auto) 0.1 10 ^3/uL (0-0.8); Eosinophils % (auto) 0.4 % (0.0-7.0); White Blood Cell 16.9 10^3/uL (4.4-10.8)
[2020-06-08 05:53] LABS: Basophils % (auto) 0.1 % (0.0-2.0); Hematocrit 43.3 % (41.0-53.0); Hemoglobin 14.9 g/dL (13.5-17.5); Lymphocytes # (auto) 2.1 10 ^3/uL (0.4-5.4); Lymphocytes % (auto) 12.4 % (10.0-50.0); Mean Corpuscular Hemoglobin 30.4 pg (28.0-32.0); Mean Corpuscular Hgb Conc. 34.5 g/dL (32.0-36.0); Mean Corpuscular Volume 87.9 fL (80.0-100.0); Monocytes # (auto) 1.8 10 ^3/uL (0-1.3); Monocytes % (auto) 10.8 % (0.0-12.0); Neutrophils # (auto) 12.9 10 ^3/uL (1.6-8.6); Neutrophils % (auto) 76.3 % (37.0-80.0); Platelet Count (auto) 485 10^3/uL (140-450); Red Blood Cells 4.92 10^6/uL (4.5-5.90); Red Cell Distribution Width 13.3 % (11.8-14.3)
[2020-06-08 06:08] LABS: Potassium 3.7 mmol/L (3.5-5.1)
[2020-06-08 06:13] LABS: Albumin 2.6 g/dL (3.4-5.0); BUN/Creatinine Ratio 36.2
[2020-06-08 06:16] LABS: Bilirubin, Total 0.9 mg/dL (0.2-1.0); Total Protein 7.5 g/dL (6.4-8.2)
[2020-06-08] MEDS: VANCOMYCIN 1GM/250ML 250 ML IV SCH ×3 (06:18→23:13)
[2020-06-08 08:00] VITALS: BP 129/88
[2020-06-08] MEDS: ALBUTEROL SULF 2.5 MG/0.5ML(0.5%) NEB SOLN NEB SCH ×3 (08:39→18:30)
[2020-06-08] MEDS: IPRATROPIUM BROM 0.5 MG/2.5ML INH SOL NEB SCH ×3 (08:39→18:30)
[2020-06-08] MEDS: FOLIC ACID 1 MG in D5W 5% 50 ML INJ SCH ×2 (10:00→11:19)
[2020-06-08] MEDS: THIAMINE 100mg/ml INJ (200mg/2ml VIAL) IV SCH (10:05)
[2020-06-08] MEDS: LACTULOSE 20Gm/30ML SOLN GT SCH ×2 (10:05→22:43)
[2020-06-08] MEDS: FAMOTIDINE (10MG/ML) 2ML VL IV SCH ×2 (10:05→22:43)
[2020-06-08] MEDS: CHOLECALCIFEROL (VITD3) 2,000 UNIT CAP PO SCH (10:06)
[2020-06-08] MEDS: ASCORBIC ACID 1,000 MG TAB PO SCH (10:06)
[2020-06-08] MEDS: ZINC SULFATE 220mg CAP or TAB PO SCH (10:06)
[2020-06-08] MEDS: ENOXAPARIN SOD 40 MG/0.4 ML SYRINGE SC SCH (10:07)
[2020-06-08 16:00] VITALS: BP 131/79
[2020-06-09] VITALS: BP 111/74
[2020-06-09] MEDS: VANCOMYCIN 1GM/250ML 250 ML IV SCH ×3 (05:46→22:37)
[2020-06-09] MEDS: CEFEPIME 1 GM in SODIUM CHL 0.9% 50 ML IV SCH ×3 (05:47→22:37)
[2020-06-09] MEDS: ALBUTEROL SULF HFA 90MCG INH 200DOSE IN SCH ×3 (06:19→22:00)
[2020-06-09 08:20] VITALS: BP 120/79
[2020-06-09] MEDS: ENOXAPARIN SOD 40 MG/0.4 ML SYRINGE SC SCH ×2 (10:00→15:03)
[2020-06-09] MEDS: ZINC SULFATE 220mg CAP or TAB PO SCH (10:00)
[2020-06-09] MEDS: ASCORBIC ACID 1,000 MG TAB PO SCH (10:00)
[2020-06-09] MEDS: CHOLECALCIFEROL (VITD3) 2,000 UNIT CAP PO SCH (10:00)
[2020-06-09] MEDS: THIAMINE 100mg/ml INJ (200mg/2ml VIAL) IV SCH (10:46)
[2020-06-09] MEDS: FAMOTIDINE (10MG/ML) 2ML VL IV SCH ×2 (10:47→22:42)
[2020-06-09] MEDS: Jevity 1.2 Cal/Fiber 1 Liter GT SCH (11:10)
[2020-06-09] MEDS: LACTULOSE 20Gm/30ML SOLN GT SCH (13:02)
[2020-06-09] MEDS: FOLIC ACID 1 MG in D5W 5% 50 ML INJ SCH (13:03)
[2020-06-09 16:00] VITALS: BP 129/90
[2020-06-09] MEDS: TEMAZEPAM 15 MG CAP PO PRN (22:42)
[2020-06-10] VITALS: BP 123/72
[2020-06-10] MEDS: CEFEPIME 1 GM in SODIUM CHL 0.9% 50 ML IV SCH (05:29)
[2020-06-10] MEDS: VANCOMYCIN 1GM/250ML 250 ML IV SCH (05:30)
[2020-06-10] MEDS: ALBUTEROL SULF HFA 90MCG INH 200DOSE IN SCH ×4 (06:00→22:00)
[2020-06-10 06:22] LABS: Basophils # (auto) 0 10 ^3/uL (0-0.2); Basophils % (auto) 0.4 % (0.0-2.0); Eosinophils # (auto) 0.2 10 ^3/uL (0-0.8); Eosinophils % (auto) 1.9 % (0.0-7.0); Hematocrit 41.7 % (41.0-53.0); Hemoglobin 14.2 g/dL (13.5-17.5); Lymphocytes # (auto) 2.2 10 ^3/uL (0.4-5.4); Lymphocytes % (auto) 18.5 % (10.0-50.0); Mean Corpuscular Hemoglobin 30.4 pg (28.0-32.0); Mean Corpuscular Volume 89.5 fL (80.0-100.0); Monocytes # (auto) 1.1 10 ^3/uL (0-1.3); Monocytes % (auto) 8.9 % (0.0-12.0); Neutrophils # (auto) 8.5 10 ^3/uL (1.6-8.6); Neutrophils % (auto) 70.3 % (37.0-80.0); Nucleated Red Blood Cells % 0.1 %; Platelet Count (auto) 409 10^3/uL (140-450); Red Blood Cells 4.66 10^6/uL (4.5-5.90); Red Cell Distribution Width 13.6 % (11.8-14.3)
[2020-06-10 06:48] LABS: Potassium 4.5 mmol/L (3.5-5.1)
[2020-06-10 06:59] LABS: Albumin 2.3 g/dL (3.4-5.0); BUN/Creatinine Ratio 37.1; Bilirubin, Total 0.7 mg/dL (0.2-1.0); Calcium 8.5 mg/dL (8.5-10.1); Total Protein 6.4 g/dL (6.4-8.2)
[2020-06-10 08:00] VITALS: BP 130/77
[2020-06-10] MEDS: FAMOTIDINE 20 MG TAB PO SCH (10:00)
[2020-06-10] MEDS: ENOXAPARIN SOD 40 MG/0.4 ML SYRINGE SC SCH (10:18)
[2020-06-10] MEDS: ASCORBIC ACID 1,000 MG TAB PO SCH (10:18)
[2020-06-10] MEDS: CHOLECALCIFEROL (VITD3) 2,000 UNIT CAP PO SCH (10:18)
[2020-06-10] MEDS: ZINC SULFATE 220mg CAP or TAB PO SCH (10:18)
[2020-06-10] MEDS: NYSTATIN (MOUTH-THROAT) 500,000 UNITS/5 ML SUSP MT SCH ×3 (12:00→21:33)
[2020-06-10 15:44] VITALS: BP 117/77
[2020-06-10] MEDS: TEMAZEPAM 15 MG CAP PO PRN (21:33)
[2020-06-11] VITALS: BP 114/75
[2020-06-11] MEDS: NYSTATIN (MOUTH-THROAT) 500,000 UNITS/5 ML SUSP MT SCH ×2 (05:47→11:57)
[2020-06-11] MEDS: ALBUTEROL SULF HFA 90MCG INH 200DOSE IN SCH (07:15)
[2020-06-11 08:00] VITALS: BP 118/79
[2020-06-11] MEDS: FAMOTIDINE 20 MG TAB PO SCH (09:42)
[2020-06-11] MEDS: ENOXAPARIN SOD 40 MG/0.4 ML SYRINGE SC SCH (09:42)
[2020-06-11] MEDS: ZINC SULFATE 220mg CAP or TAB PO SCH (09:42)
[2020-06-11] MEDS: ASCORBIC ACID 1,000 MG TAB PO SCH (09:42)
[2020-06-11] MEDS: CHOLECALCIFEROL (VITD3) 2,000 UNIT CAP PO SCH (09:43)
[2020-06-11] MEDS ORDERED: CHOL20007 PO (10:57)
[2020-06-11] MEDS ORDERED: ASCO500T11 PO (10:57)
[2020-06-11] MEDS ORDERED: ALBUAER3 IN (10:57)
[2020-06-11] MEDS ORDERED: FAMO20TA10 PO (10:57)
[2020-06-11] MEDS ORDERED: ZINC220T6 PO (10:57)
[2020-06-11 14:25] VITALS: BP 118/79
[2020-06-11 15:55] VITALS: BP 113/78
== END 2020-06-11 15:30 | disposition home health service (06) | DRG 870 ==
LOC: EDBD 13:00 → ER 13:00 → UNDOADMIN 13:01 → OVERFLOW 13:01 → ICU CENTRL 13:01 → DOU IN ICU 06-01 01:31 → TELE-WESTW 06-06 12:29
PROVIDERS: ADMIT Internal Medicine; ATTEND Internal Medicine
PROC: XW033E5 Introduction of Remdesivir Anti-infective into Peripheral Vein, Percutaneous Approach, New Technology Group 5 (ICD-10-PCS; principal; 2020-05-25)
PROC: 5A09457 Assistance with Respiratory Ventilation, 24-96 Consecutive Hours, Continuous Positive Airway Pressure (ICD-10-PCS; 2020-05-25)
PROC: 5A1955Z Respiratory Ventilation, Greater than 96 Consecutive Hours (ICD-10-PCS; 2020-05-27)
PROC: 0BH17EZ Insertion of Endotracheal Airway into Trachea, Via Natural or Artificial Opening (ICD-10-PCS; 2020-05-27)
PROC: XW13325 Transfusion of Convalescent Plasma (Nonautologous) into Peripheral Vein, Percutaneous Approach, New Technology Group 5 (ICD-10-PCS; 2020-05-29)
PROC: 5A1935Z Respiratory Ventilation, Less than 24 Consecutive Hours (ICD-10-PCS; 2020-06-04)
PROC: 0BH17EZ Insertion of Endotracheal Airway into Trachea, Via Natural or Artificial Opening (ICD-10-PCS; 2020-06-04)
DX: A41.89 Other specified sepsis (principal); E43 Unspecified severe protein-calorie malnutrition; J12.82 Pneumonia due to coronavirus disease 2019; J96.01 Acute respiratory failure with hypoxia; U07.1 COVID-19; G93.41 Metabolic encephalopathy; E72.20 Disorder of urea cycle metabolism, unspecified; G93.1 Anoxic brain damage, not elsewhere classified; I24.8 Other forms of acute ischemic heart disease; E87.6 Hypokalemia; F29 Unspecified psychosis not due to a substance or known physiological condition; R65.20 Severe sepsis without septic shock; F41.0 Panic disorder [episodic paroxysmal anxiety]; F41.9 Anxiety disorder, unspecified; R00.1 Bradycardia, unspecified; E11.65 Type 2 diabetes mellitus with hyperglycemia; E66.9 Obesity, unspecified; I16.0 Hypertensive urgency; Z78.1 Physical restraint status; Z68.30 Body mass index [BMI] 30.0-30.9, adult
CPT/HCPCS: 36415; 36600; 70450; 71045; 76705; 80048; 80053; 80202; 82140; 82550; 82728; 82805; 82962; 83036; 83605; 83880; 84484; 85007; 85025; 85027; 85379; 85610; 85730; 86850; 86900; 86901; 87040; 87070; 87077; 87081; 87086; 87186; 87205; 87426; 92610; 93005; 93970; 94002; 94003; 94640; 94660; 97110; 97116; 97530; G0378; J0330; J1100; J1335; J1450; J1956; J2250; J2704; J3480; J3490; J7060